=== PATIENT | male | born 1945 | race Caucasian/White ===

== ENCOUNTER 2018-07-30 16:16 | Outpatient (CLI) | payer MEDICARE, OTHER ==
[2015-08-30 10:07] VITALS: BP 138/70
== END 2018-07-30 16:18 ==
LOC: RAD 16:16 → RT 16:18
PROVIDERS: ATTEND Family Medicine
DX: I49.9 Cardiac arrhythmia, unspecified (principal)

== ENCOUNTER 2019-04-10 16:21 | Outpatient (CLI) | payer MEDICARE, OTHER ==
[2015-08-30 10:07] VITALS: BP 138/70
== END 2019-04-10 16:23 ==
LOC: LABRHC 16:21
PROVIDERS: ATTEND Nurse Practitioner Family
DX: L08.9 Local infection of the skin and subcutaneous tissue, unspecified (principal)
CPT/HCPCS: 87070; 87186